=== PATIENT | male | born 2000 | race African-American/Black ===

== ENCOUNTER 2020-05-27 21:46 | Inpatient (IN) | payer OTHER ==
[~2020-05-27] VITALS: Ht 177.8 cm; Wt 87.0 kg
--- NOTE | 2020-05-27 21:59 | NUR ---
PT ANDERS, AUGIE, A&OX4. SEIZURE PADS IN PLACE. Addendum: 05/27/20 at 2225 by [email or web address] PT WAS AT THE [employer] [facility] WHERE HE HAD A WITNESSED TONIC CLONIC SZ, PT ALSO HAS SECURITY FOOTAGE OF EVENT. PT STATES HE BECAME DIZZY PRIOR TO SEIZING. BUT DENIES ANY PAIN. PT DENIES ANY MEDICAL HX, DENIES HAVING HAD A SZ IN THE PAST. PT STATES HE DID NOTHING OUT OF ROUTINE TODAY. STATES HE "OCCAISIONALLY SMOKES MARIJUANNA AND DID TODAY" BUT STATES THAT "IT IS FROM A RELIABLE SOURCE AND DOES NOT BELIEVE IT WOULD HAVE BEEN LACED WITH ANYTHING." PT PRESENTS TO THE ER A&OX4, AUGIE, NO COMPLAINTS. ALL NEEDS MET AT THIS TIME. PT HAS BEEN EDUCATED TO ALERT THIS RN IF HE BEGINS FEELING DIZZY AGAIN. COMMUNICATED UNDERSTANDING AND CALL LIGHT IN REACH. BEDRAILS UP X2, SEIZURE PADS IN PLACE. PT UPDATED ON POC, ALL QUESTIONS ANSWERED.
[2020-05-27 22:41] LABS: BASOPHILS % (AUTO) 0 % (0-1); EOSINOPHILS % (AUTO) 2 % (1-7); LYMPHOCYTES % (AUTO) 20 % (22-44); MEAN CORPUSCULAR HEMOGLOBIN 27.5 pg (27.5-34.5); MEAN CORPUSCULAR HGB CONC 32.6 g/dL (33.2-36.2); MEAN PLATELET VOLUME 8.6 fL (7.4-10.4); MONOCYTES % (AUTO) 8 % (2-9); NEUTROPHILS % (AUTO) 70 % (42-75); PLATELET COUNT 221 x10^3/uL (130-400); RED BLOOD COUNT 5.57 x10^6/uL (4.38-5.82); RED CELL DISTRIBUTION WIDTH 13.7 % (9.4-14.8)
[2020-05-27 22:42] LABS: MD NO
[2020-05-27 22:45] LABS: ALBUMIN 3.7 g/dL (3.4-5.0); ANION GAP 5 mmol/L (5-15); CALCIUM 8.5 mg/dL (8.5-10.1); CHLORIDE 111 mmol/L (98-107); CREATININE 1.14 mg/dL (0.7-1.3)
[2020-05-27 22:51] LABS: TROPONIN I 0.323 ng/mL (0.000-0.045)
[2020-05-27] MEDS ORDERED: ASPIRIN 81 MG TABLET CHEW ONE (22:56)
[2020-05-27] MEDS ORDERED: ASPIRIN 81 MG TABLET CHEW PO ONE (23:00)
[2020-05-27] MEDS ORDERED: PLEASE ENTER ALLERGIES MC SCH (23:00)
--- NOTE | 2020-05-27 23:19 | NUR ---
FIRST ATTEMPT TO CALL REPORT.
[2020-05-27] MEDS ORDERED: POLYETHYLENE GLYCOL 17 GM PACKET PO PRN (23:30)
[2020-05-27] MEDS ORDERED: ACETAMINOPHEN 325 MG TABLET PO PRN (23:30)
[2020-05-27] MEDS ORDERED: ONDANSETRON ODT 4 MG PO PRN (23:30)
[2020-05-27] MEDS ORDERED: BISACODYL 10 MG SUPP PR PRN (23:30)
--- NOTE | 2020-05-27 23:31 | NUR ---
REPORT TO ALEXA NESS.
[2020-05-27 23:52] VITALS: BP 134/85
[2020-05-28] MEDS: HEPARIN 5,000 UNITS/ML, 1ML SQ SCH ×3 (00:04→17:27)
[2020-05-28] MEDS: SODIUM CHLORIDE 0.9% 1,000 ML IV SCH ×2 (00:05→12:50)
[2020-05-28 05:11] LABS: BASOPHILS % (AUTO) 1 % (0-1); EOSINOPHILS % (AUTO) 3 % (1-7); LYMPHOCYTES % (AUTO) 23 % (22-44); MEAN CORPUSCULAR HEMOGLOBIN 27.6 pg (27.5-34.5); MEAN CORPUSCULAR HGB CONC 32.4 g/dL (33.2-36.2); MEAN PLATELET VOLUME 8.5 fL (7.4-10.4); MONOCYTES % (AUTO) 11 % (2-9); NEUTROPHILS % (AUTO) 63 % (42-75); PLATELET COUNT 212 x10^3/uL (130-400); RED BLOOD COUNT 5.31 x10^6/uL (4.38-5.82); RED CELL DISTRIBUTION WIDTH 13.6 % (9.4-14.8)
[2020-05-28 05:15] LABS: MD NO
[2020-05-28 05:20] LABS: CHLORIDE 110 mmol/L (98-107)
[2020-05-28 05:29] LABS: ALANINE AMINOTRANSFERASE 56 U/L (12-78); ALBUMIN 3.3 g/dL (3.4-5.0); ALKALINE PHOSPHATASE 61 U/L (45-117); ANION GAP 4 mmol/L (5-15); CALCIUM 8.4 mg/dL (8.5-10.1); CHOL/HDL RATIO 2.9; CHOLESTEROL, TOTAL 171 mg/dL (140-239); CREATININE 1.33 mg/dL (0.7-1.3); HDL CHOL % 34 % (26-37); HDL CHOLESTEROL (DIRECT) 58 mg/dL (40-60); LDL CHOLESTEROL,CALCULATED 99 mg/dL (54-169); LDL/HDL RATIO 1.7 (0.5-3.0); TOTAL PROTEIN 6.8 g/dL (6.4-8.2); TRIGLYCERIDES 69 mg/dL (50-200); TROPONIN I 0.129 ng/mL (0.000-0.045); VLDL CHOLESTEROL 14 mg/dL (0-25)
[2020-05-28] MEDS: ASPIRIN 81 MG TABLET EC PO SCH (06:33)
[2020-05-28 08:00] VITALS: BP 132/83
[2020-05-28] MEDS: SENNA/DOCUSATE TABLET PO SCH (09:00)
[2020-05-28 13:40] LABS: TROPONIN I 0.046 ng/mL (0.000-0.045)
[2020-05-28 14:00] VITALS: BP 142/81
[2020-05-28] MEDS ORDERED: GADOTERATE 10 MMOL/20 ML SYR ONE (16:48)
[2020-05-28 23:04] VITALS: BP 142/85
[2020-05-29] MEDS: HEPARIN 5,000 UNITS/ML, 1ML SQ SCH ×2 (01:00→09:40)
[2020-05-29] MEDS: SODIUM CHLORIDE 0.9% 1,000 ML IV SCH (02:10)
[2020-05-29 05:54] LABS: BASOPHILS % (AUTO) 0 % (0-1); EOSINOPHILS % (AUTO) 4 % (1-7); LYMPHOCYTES % (AUTO) 28 % (22-44); MEAN CORPUSCULAR HEMOGLOBIN 27.5 pg (27.5-34.5); MEAN CORPUSCULAR HGB CONC 32.5 g/dL (33.2-36.2); MEAN PLATELET VOLUME 8.7 fL (7.4-10.4); MONOCYTES % (AUTO) 10 % (2-9); NEUTROPHILS % (AUTO) 58 % (42-75); PLATELET COUNT 228 x10^3/uL (130-400); RED CELL DISTRIBUTION WIDTH 13.5 % (9.4-14.8)
[2020-05-29 05:57] LABS: ANION GAP 5 mmol/L (5-15); CALCIUM 9.2 mg/dL (8.5-10.1); CHLORIDE 110 mmol/L (98-107); CREATININE 1.21 mg/dL (0.7-1.3)
[2020-05-29 06:09] LABS: MD NO
[2020-05-29] MEDS: ASPIRIN 81 MG TABLET EC PO SCH (06:55)
[2020-05-29 07:19] VITALS: BP 152/77
[2020-05-29] MEDS: SENNA/DOCUSATE TABLET PO SCH (09:41)
[2020-05-29 13:41] VITALS: BP 144/88
[2020-05-29] MEDS ORDERED: FLU VACC QS2020-21(6MOS UP)/PF 60MCG/0.5 ML SYR IM-VACC ONE (14:30)
== END 2020-05-29 14:38 | disposition home or self-care (01) | DRG 100 ==
LOC: ED 22:04 → EDIP 23:12 → 5SO 23:48 → DCLOUNGE 05-29 14:35
PROVIDERS: ADMIT Internal Medicine; ATTEND Internal Medicine
DX: G40.409 Other generalized epilepsy and epileptic syndromes, not intractable, without status epilepticus (principal); I21.3 ST elevation (STEMI) myocardial infarction of unspecified site; F12.10 Cannabis abuse, uncomplicated; W18.39XA Other fall on same level, initial encounter; Y93.89 Activity, other specified; Y92.89 Other specified places as the place of occurrence of the external cause; Y99.8 Other external cause status; Z80.7 Family history of other malignant neoplasms of lymphoid, hematopoietic and related tissues; Z87.891 Personal history of nicotine dependence
CPT/HCPCS: 36415; 70553; 80048; 80053; 80061; 82040; 84443; 84484; 85025; 90686; 93005; 93306; 93356; 95819; G0378; J1644; A9575; J7030